=== PATIENT | male | born 1985 | race Caucasian/White ===

== ENCOUNTER 2017-09-15 00:44 | Emergency (ER) | payer SELFPAY ==
[~2017-09-15] VITALS: Ht 180.3 cm; Wt 110.0 kg
[2017-09-15 00:44] VITALS: BP 154/100; PULSE 94; RESP 16; TEMP 99.5; O2SAT 99
[2017-09-15] MEDS ORDERED: AMOX875T PO (00:56)
[2017-09-15] MEDS ORDERED: AMOXICILLIN (TRIHYDRATE) 500 MG CAP PO ONE (01:00)
[2017-09-15] MEDS ORDERED: DEXAMETHASONE 6 MG TAB PO ONE (01:00)
--- NOTE | 2017-09-15 01:00 | PD ---
HPI Chief Complaint: ENT Complaint Time Seen by Provider: 00:55 Travel History International Travel<30 days: No Contact w/Intl Traveler<30days: No Traveled to known affect area: No History of Present Illness HPI 32-year-old white male presents with a 3-4 day history of sore throat and painful swallowing. He states that he has had chills but no documented fever. Some cough and slight wheeze. He denies any ear pain, shortness of breath, nausea, vomiting, diarrhea or abdominal pain. Symptoms are moderate. Worse with swallowing. He states that he was just released from longterm. [facility] Past Medical History Medical History: Denies Significant Hx Immunizations Current: Yes Tetanus Vaccination: < 5 Years Influenza Vaccination: No Past Surgical History Surgical History: No Previous Surgery Social History Alcohol Use: No Tobacco Use: Yes Substance Use: No Allergies-Medications (Allergen,Severity, Reaction): Coded Allergies: sertraline (Verified Allergy, Unknown, 09/15/17) Reported Meds & Prescriptions Reported Meds & Active Scripts Active Amoxicillin 875 Mg Tab 875 Mg PO BID 10 Days Review of Systems Except as stated in HPI: all other systems reviewed are Neg Physical Exam Narrative GENERAL: Well-developed, well-nourished in no acute distress. Nontoxic appearing. HEAD: Normocephalic, atraumatic. EYES: Pupils equal round and reactive. Extraocular motions intact. No scleral icterus. No injection or drainage. ENT: TMs clear without erythema. The external auditory canals clear. Nose: clear . Posterior pharynx is erythematous and moist. Large tonsillar edema but no exudate. The left tonsil is much bigger than the right but I do not see any evidence of abscess. Uvula midline. Airway patent. Patient does have slight hoarse voice but not hot potato NECK: Trachea midline.Supple, nontender, moves head freely. No central bony tenderness or spasm. Positive tonsillar adenopathy. CARDIOVASCULAR: Regular rate and rhythm without murmurs, gallops, or rubs. RESPIRATORY: Clear to auscultation. Breath sounds equal bilaterally. No wheezes , rales, or rhonchi. GASTROINTESTINAL: Abdomen soft, non-tender, nondistended. No hepato-splenomegaly , or palpable masses. No guarding. EXTREMITIES: No clubbing, cyanosis, or edema. No joint tenderness, effusion, or edema noted. BACK: Nontender without deformity or crepitance. No flank tenderness. Data Data Last Documented VS Vital Signs Date Time Temp Pulse Resp B/P (MAP) Pulse Ox O2 Delivery O2 Flow Rate FiO2 09/15/17 00:44 99.5 94 16 154/100 (118) 99 Room Air Orders Orders Amoxicillin (Trimox) (09/15/17 01:00) Dexamethasone (Decadron) (09/15/17 01:00) Ed Discharge Order (09/15/17 00:56) MDM Medical Decision Making Medical Screen Exam Complete: Yes Emergency Medical Condition: Yes Medical Record Reviewed: Yes Differential Diagnosis MDM: High Differential diagnoses: Strep throat, viral pharyngitis, mono, peritonsillar abscess, retropharyngeal abscess, Sidney's angina Narrative Course Patient is given Amoxil 1 g by mouth and Decadron 12 mg by mouth. This is acute pharyngitis Diagnosis Primary Impression: Acute pharyngitis Qualified Codes: J02.9 - Acute pharyngitis, unspecified Patient Instructions: General Instructions Additional Instructions: Rest. Force fluids. Saltwater gargles. Tylenol and Advil. Chloraseptic [place] Cepastat lozenge. Amoxicillin. Follow-up with a primary care doctor in one week. Return to the ER if any problems. Med/Other Pt SpecificInfo: Prescription(s) given Scripts Amoxicillin (Amoxicillin) 875 Mg Tab 875 MG PO BID for Infection for 10 Days, #20 TAB 0 Refills Prov: Leander Richards MD 09/15/17 Disposition: 01 DISCHARGE HOME Condition: Stable Sal Rapp Sep 15, 2017 01:00
== END 2017-09-15 01:22 | disposition home or self-care (01) ==
LOC: NEPK 00:44
DX: J02.9 Acute pharyngitis, unspecified (principal); Z72.0 Tobacco use
CPT/HCPCS: 99283; J8540